=== PATIENT | male | born 1980 | race African-American/Black ===

== ENCOUNTER 2021-01-06 11:51 | Emergency (ER) | payer SELFPAY ==
[~2021-01-06] VITALS: Ht 177.8 cm; Wt 102.1 kg
[2021-01-06] MEDS ORDERED: ASPirin 81 mg TAB PO ONE (12:15)
[2021-01-06 12:58] LABS: Basophils # (auto) 0.1 10 ^3/uL (0-0.2); Basophils % (auto) 0.6 % (0.0-2.0); Eosinophils # (auto) 0.3 10 ^3/uL (0-0.8); Eosinophils % (auto) 2.6 % (0.0-7.0); Hematocrit 44.2 % (41.0-53.0); Hemoglobin 15.4 g/dL (13.5-17.5); Lymphocytes # (auto) 3.2 10 ^3/uL (0.4-5.4); Lymphocytes % (auto) 32.7 % (10.0-50.0); Mean Corpuscular Hemoglobin 32.1 pg (28.0-32.0); Mean Corpuscular Hgb Conc. 34.9 g/dL (32.0-36.0); Mean Corpuscular Volume 92.1 fL (80.0-100.0); Monocytes # (auto) 0.6 10 ^3/uL (0-1.3); Monocytes % (auto) 5.8 % (0.0-12.0); Neutrophils # (auto) 5.7 10 ^3/uL (1.6-8.6); Neutrophils % (auto) 58.3 % (37.0-80.0); Nucleated Red Blood Cells % 0.1 %; Platelet Count (auto) 255 10^3/uL (140-450); Red Cell Distribution Width 12.9 % (11.8-14.3); White Blood Cell 9.9 10^3/uL (4.4-10.8)
[2021-01-06 13:16] LABS: Anion Gap 4 (5-15); Blood Urea Nitrogen 13 mg/dL (7-18); Carbon Dioxide 26 mmol/L (21-32); Chloride 108 mmol/L (98-107); Glucose 71 mg/dL (74-106); Magnesium 2.7 mg/dL (1.6-2.6); Potassium 4.3 mmol/L (3.5-5.1); Sodium 138 mmol/L (136-145)
[2021-01-06 13:24] LABS: Alanine Aminotransferase 29 U/L (16-61); Alkaline Phosphatase 79 U/L (45-117); Aspartate Aminotransferase 16 U/L (15-37); BUN/Creatinine Ratio 9.1; Bilirubin, Total 0.3 mg/dL (0.2-1.0); GFR African American 71 mL/min; GFR Non-African American 59 mL/min; Total Protein 7.6 g/dL (6.4-8.2)
[2021-01-06 13:55] VITALS: BP 142/88
== END 2021-01-06 14:00 | disposition home or self-care (01) ==
LOC: ER 11:51
DX: R07.89 Other chest pain (principal); I16.0 Hypertensive urgency
CPT/HCPCS: 36415; 71046; 80053; 83735; 84484; 85025; 93005

== ENCOUNTER 2022-03-09 15:17 | Emergency (ER) | payer SELFPAY ==
[~2022-03-09] VITALS: Ht 177.8 cm; Wt 97.5 kg
[2022-03-09 16:00] VITALS: BP 154/90
[2022-03-09] MEDS ORDERED: BENZOCAINE (DENTAL)20% 1 SPR SPRAY MT ONE (16:15)
[2022-03-09] MEDS ORDERED: BENZ20SO3 MT (16:26)
[2022-03-09] MEDS ORDERED: CLIN300C8 PO (16:26)
== END 2022-03-09 16:42 | disposition home or self-care (01) ==
LOC: ER 15:17
DX: K04.7 Periapical abscess without sinus (principal); I10 Essential (primary) hypertension; F12.10 Cannabis abuse, uncomplicated; Z88.8 Allergy status to other drugs, medicaments and biological substances

== ENCOUNTER 2022-04-16 23:13 | Inpatient (IN) | payer MEDICAID ==
[~2022-04-16] VITALS: Ht 177.8 cm; Wt 93.0 kg
[~2022-04-16 23:13] MED LIST: BENZ20SO3 MT; CLIN300C8 PO
[2022-04-17] MEDS ORDERED: amLODIPine BESYLATE 5 MG TAB PO ONE
[2022-04-17 01:12] LABS: Basophils # (auto) 0.1 10 ^3/uL (0-0.2); Basophils % (auto) 0.7 % (0.0-2.0); Eosinophils # (auto) 0.5 10 ^3/uL (0-0.8); Eosinophils % (auto) 4.9 % (0.0-7.0); Hemoglobin 15.3 g/dL (13.5-17.5); Lymphocytes # (auto) 3.4 10 ^3/uL (0.4-5.4); Lymphocytes % (auto) 32.8 % (10.0-50.0); Mean Corpuscular Hemoglobin 31.3 pg (28.0-32.0); Mean Corpuscular Hgb Conc. 33.9 g/dL (32.0-36.0); Mean Corpuscular Volume 92.3 fL (80.0-100.0); Monocytes # (auto) 0.6 10 ^3/uL (0-1.3); Monocytes % (auto) 6.1 % (0.0-12.0); Neutrophils # (auto) 5.8 10 ^3/uL (1.6-8.6); Neutrophils % (auto) 55.5 % (37.0-80.0); Red Blood Cells 4.87 10^6/uL (4.5-5.90); Red Cell Distribution Width 12.9 % (11.8-14.3); White Blood Cell 10.5 10^3/uL (4.4-10.8)
[2022-04-17 01:26] LABS: Albumin 4.2 g/dL (3.4-5.0); BUN/Creatinine Ratio 12.1; Calcium 8.8 mg/dL (8.5-10.1); Potassium 4.5 mmol/L (3.5-5.1)
[2022-04-17 01:29] LABS: Bilirubin, Total 0.3 mg/dL (0.2-1.0); Total Protein 7.1 g/dL (6.4-8.2)
[2022-04-17] MEDS ORDERED: hydrALAZINE HCL 20 MG/ML VL IV ONE (02:30)
[2022-04-17] MEDS ORDERED: ALPRAZolam 0.5 MG TAB PO ONE ×2 (03:15→21:00)
[2022-04-17] MEDS ORDERED: LABETALOL HCL 5 MG/ML 4ML SYRINGE IV ONE ×2 (03:30→07:00)
[2022-04-17] MEDS ORDERED: hydrALAZINE HCL 20 MG/ML VL IV PRN (08:45)
[2022-04-17] MEDS ORDERED: cloNIDine HCL 0.1 MG TAB PO ONE (08:45)
[2022-04-17] MEDS ORDERED: MORPHINE SULFATE INJ 2 MG/ml SYRG IV PRN (09:00)
[2022-04-17] MEDS ORDERED: NITROGLYCERIN 0.4 MG SL TAB SL PRN (09:00)
[2022-04-17] MEDS: ENOXAPARIN SOD 40 MG/0.4 ML SYRINGE SC SCH (09:43)
[2022-04-17] MEDS ORDERED: LISINOPRIL 20 MG TAB PO SCH (10:00)
[2022-04-17] MEDS ORDERED: amLODIPine BESYLATE 5 MG TAB PO SCH (10:00)
[2022-04-17] MEDS: HCTZ 25 MG TAB PO SCH (10:43)
[2022-04-17 10:53] LABS: Cholesterol 162 mg/dL (< 200)
[2022-04-17 10:56] LABS: HDL Cholesterol 45 mg/dL (40-59); LDL Cholesterol 92 mg/dL (< 100); Triglycerides 160 mg/dL (< 150)
[2022-04-17 14:00] LABS: Amphetamine Screen, Urine NEGATIVE (NEGATIVE); Barbiturate Scree,Urine NEGATIVE (NEGATIVE); Benzodiazephine Screen, Urine NEGATIVE (NEGATIVE); Cannabinoid Screen, Urine POSITIVE (NEGATIVE); Cocaine Screen, Urine NEGATIVE (NEGATIVE); Opiate Scree,Urine NEGATIVE (NEGATIVE); Phencyclidine Screen, Urine NEGATIVE (NEGATIVE)
[2022-04-17 14:03] LABS: Urine Bacteria NONE SEEN /hpf (None Seen); Urine Blood Negative /uL (Negative); Urine Specific Gravity 1.011 (1.001-1.035); Urine WBC <1 /hpf (0 - 3)
[2022-04-17] MEDS ORDERED: METOPROLOL SUCCINATE XL 50 MG TAB PO ONE (14:30)
[2022-04-17] MEDS ORDERED: LOSARTAN POTASSIUM 50 MG TAB PO ONE (14:30)
[2022-04-17] MEDS ORDERED: cloNIDine HCL 0.1 MG TAB PO PRN (14:30)
[2022-04-17] MEDS ORDERED: ACETAMINOPHEN 500 MG TAB PO ONE ×2 (16:30→21:00)
[2022-04-17 22:37] VITALS: BP_SYST 147; BP_SYST 152; BP_DIAS 115; BP_DIAS 92
[2022-04-18 05:00] VITALS: BP 144/96
[2022-04-18 06:16] LABS: Basophils # (auto) 0.1 10 ^3/uL (0-0.2); Basophils % (auto) 0.7 % (0.0-2.0); Eosinophils # (auto) 0.5 10 ^3/uL (0-0.8); Eosinophils % (auto) 4.9 % (0.0-7.0); Hematocrit 48.2 % (41.0-53.0); Hemoglobin 16.2 g/dL (13.5-17.5); Lymphocytes % (auto) 31.8 % (10.0-50.0); Mean Corpuscular Hemoglobin 30.9 pg (28.0-32.0); Mean Corpuscular Hgb Conc. 33.6 g/dL (32.0-36.0); Mean Corpuscular Volume 91.9 fL (80.0-100.0); Monocytes # (auto) 0.6 10 ^3/uL (0-1.3); Monocytes % (auto) 5.9 % (0.0-12.0); Neutrophils # (auto) 5.3 10 ^3/uL (1.6-8.6); Neutrophils % (auto) 56.7 % (37.0-80.0); Nucleated Red Blood Cells % 0.2 %; Red Blood Cells 5.25 10^6/uL (4.5-5.90); Red Cell Distribution Width 12.7 % (11.8-14.3); White Blood Cell 9.3 10^3/uL (4.4-10.8)
[2022-04-18 06:20] LABS: BUN/Creatinine Ratio 8.9; Calcium 9.2 mg/dL (8.5-10.1); Potassium 4.2 mmol/L (3.5-5.1)
[2022-04-18 09:00] VITALS: BP 164/109
[2022-04-18] MEDS: HCTZ 25 MG TAB PO SCH (09:39)
[2022-04-18] MEDS: ENOXAPARIN SOD 40 MG/0.4 ML SYRINGE SC SCH (09:40)
[2022-04-18] MEDS ORDERED: LOSARTAN POTASSIUM 50 MG TAB PO SCH (10:00)
[2022-04-18] MEDS ORDERED: METOPROLOL SUCCINATE XL 50 MG TAB PO SCH (10:00)
== END 2022-04-18 10:36 | disposition left against medical advice (07) | DRG 199 ==
LOC: ER 23:13 → TELE 04-17 08:53 → TELE-WESTW 04-17 21:50
PROVIDERS: ADMIT Registered Nurse; ATTEND Internal Medicine Nephrology
DX: I16.0 Hypertensive urgency (principal); F12.90 Cannabis use, unspecified, uncomplicated; F41.9 Anxiety disorder, unspecified; I10 Essential (primary) hypertension; Z53.29 Procedure and treatment not carried out because of patient's decision for other reasons; Z20.822 Contact with and (suspected) exposure to COVID-19; Z91.09 Other allergy status, other than to drugs and biological substances
CPT/HCPCS: 36415; 80048; 80053; 80061; 80307; 81001; 82088; 83036; 84244; 84484; 85025; 93005; 93306; 96372; 96374; 96375; G0378; J3490

== ENCOUNTER 2022-04-29 21:57 | Emergency (ER) | payer SELFPAY ==
[~2022-04-29] VITALS: Ht 177.8 cm; Wt 91.6 kg
[2022-04-30] MEDS ORDERED: AMLO-496 PO (01:29)
[2022-04-30] MEDS ORDERED: ALPRAZolam 0.5 MG TAB PO ONE (01:30)
[2022-04-30 01:40] VITALS: BP 161/119
== END 2022-04-30 01:44 | disposition home or self-care (01) ==
LOC: ER 21:57
DX: I10 Essential (primary) hypertension (principal); F41.9 Anxiety disorder, unspecified

== ENCOUNTER 2022-09-07 19:47 | Emergency (ER) | payer MEDICAID ==
[~2022-09-07] VITALS: Ht 177.8 cm; Wt 92.2 kg
[~2022-09-07 19:47] MED LIST changes: +AMLO-496 PO
[2022-09-07 21:15] VITALS: BP 112/101
== END 2022-09-07 21:38 | disposition home or self-care (01) ==
LOC: ER 19:47
DX: S93.602A Unspecified sprain of left foot, initial encounter (principal); X50.1XXA Overexertion from prolonged static or awkward postures, initial encounter; Y93.89 Activity, other specified; Y92.89 Other specified places as the place of occurrence of the external cause; Y99.8 Other external cause status
CPT/HCPCS: 73630

== ENCOUNTER 2022-09-14 06:19 | Emergency (ER) | payer MEDICAID ==
[~2022-09-14] VITALS: Ht 177.8 cm; Wt 92.0 kg
[2022-09-14 07:54] VITALS: BP 145/83
[2022-09-14] MEDS ORDERED: CLIN300C8 PO (08:03)
== END 2022-09-14 08:09 | disposition home or self-care (01) ==
LOC: ER 06:19
DX: K04.7 Periapical abscess without sinus (principal); F12.10 Cannabis abuse, uncomplicated; I10 Essential (primary) hypertension; Z88.1 Allergy status to other antibiotic agents

== ENCOUNTER 2022-12-15 23:08 | Emergency (ER) | payer MEDICAID ==
[~2022-12-15] VITALS: Ht 177.8 cm; Wt 92.1 kg
[2022-12-16] MEDS ORDERED: HYDR-3682 PO (00:02)
[2022-12-16] MEDS ORDERED: AMLO-496 PO (00:02)
[2022-12-16 02:09] VITALS: BP 167/95
== END 2022-12-16 02:17 | disposition home or self-care (01) ==
LOC: ER 23:08
DX: F41.9 Anxiety disorder, unspecified (principal); I10 Essential (primary) hypertension; Z76.0 Encounter for issue of repeat prescription; F12.10 Cannabis abuse, uncomplicated

== ENCOUNTER 2022-12-31 05:52 | Inpatient (IN) | payer MEDICAID ==
[~2022-12-31] VITALS: Ht 177.8 cm; Wt 86.3 kg
[~2022-12-31 05:52] MED LIST changes: +HYDR-3682 PO
[2022-12-31 06:39] LABS: Basophils # (auto) 0 10 ^3/uL (0-0.2); Basophils % (auto) 0.6 % (0.0-2.0); Eosinophils # (auto) 0.3 10 ^3/uL (0-0.8); Eosinophils % (auto) 4.2 % (0.0-7.0); Hematocrit 43.7 % (41.0-53.0); Hemoglobin 15.3 g/dL (13.5-17.5); Lymphocytes % (auto) 26.7 % (10.0-50.0); Mean Corpuscular Hemoglobin 31.9 pg (28.0-32.0); Monocytes # (auto) 0.4 10 ^3/uL (0-1.3); Neutrophils # (auto) 4.6 10 ^3/uL (1.6-8.6); Neutrophils % (auto) 62.5 % (37.0-80.0); Nucleated Red Blood Cells % 0.2 %; White Blood Cell 7.3 10^3/uL (4.4-10.8)
[2022-12-31 07:14] LABS: INR 0.94 (0.9-1.15); Partial Thromboplastin Time 29.6 sec (24.6-33.4)
[2022-12-31 07:26] LABS: Albumin 4.1 g/dL (3.4-5.0); Calcium 8.9 mg/dL (8.5-10.1); Potassium 4.1 mmol/L (3.5-5.1)
[2022-12-31 07:30] LABS: BUN/Creatinine Ratio 10.2 (10.0-20.0); Bilirubin, Total 0.3 mg/dL (0.2-1.0); Total Protein 7.3 g/dL (6.4-8.2)
[2022-12-31] MEDS ORDERED: LORazepam 0.5 MG TAB PO ONE (07:45)
[2022-12-31 08:07] LABS: Urine Bacteria NONE SEEN /hpf (None Seen); Urine Blood Negative /uL (Negative); Urine Mucus FEW (None Seen); Urine Specific Gravity 1.012 (1.001-1.035); Urine WBC <1 /hpf (0 - 3)
[2022-12-31 08:28] LABS: Alcohol, Urine < 3.0 mg/dL (0-10); Amphetamine Screen, Urine NEGATIVE (NEGATIVE); Barbiturate Scree,Urine NEGATIVE (NEGATIVE); Benzodiazephine Screen, Urine NEGATIVE (NEGATIVE); Cannabinoid Screen, Urine POSITIVE (NEGATIVE); Cocaine Screen, Urine NEGATIVE (NEGATIVE); Phencyclidine Screen, Urine NEGATIVE (NEGATIVE)
[2022-12-31 08:35] LABS: Opiate Scree,Urine NEGATIVE (NEGATIVE)
[2022-12-31] MEDS ORDERED: PANTOPRAZOLE 40 MG/10 ML VIAL INJ IV ONE (11:45)
[2022-12-31] MEDS ORDERED: ONDANSETRON HCL 4 MG/2 ML VIAL IV PRN (11:45)
[2022-12-31] MEDS ORDERED: LORazepam 0.5 MG TAB PO PRN (11:45)
[2022-12-31] MEDS ORDERED: HYDROcodone-ACET 5/325MG TAB PO PRN (11:45)
[2022-12-31] MEDS ORDERED: MORPHINE SULFATE INJ 2 MG/ml SYRG IV PRN (11:45)
[2022-12-31] MEDS ORDERED: LACTATED RINGER'S 1,000 ML IV SCH (11:45)
[2022-12-31] MEDS ORDERED: ACETAMINOPHEN 325 MG TAB PO PRN (11:45)
[2022-12-31 15:30] VITALS: BP 140/95
[2022-12-31 17:00] VITALS: BP 142/85
[2023-01-01] MEDS ORDERED: amLODIPine BESYLATE 5 MG TAB PO SCH (10:00)
[2023-01-01] MEDS ORDERED: PANTOPRAZOLE 40 MG/10 ML VIAL INJ IV SCH (10:00)
== END 2022-12-31 17:38 | disposition left against medical advice (07) | DRG 282 ==
LOC: ER 05:52 → OVERFLOW 11:41 → WEST WING 15:42
PROVIDERS: ADMIT Registered Nurse; ATTEND Registered Nurse
DX: K85.90 Acute pancreatitis without necrosis or infection, unspecified (principal); E11.9 Type 2 diabetes mellitus without complications; F41.9 Anxiety disorder, unspecified; I10 Essential (primary) hypertension; J45.909 Unspecified asthma, uncomplicated; F12.90 Cannabis use, unspecified, uncomplicated; Z53.29 Procedure and treatment not carried out because of patient's decision for other reasons; Z83.3 Family history of diabetes mellitus
CPT/HCPCS: 36415; 71046; 74176; 76705; 80053; 80307; 81001; 83690; 83880; 84484; 85025; 85379; 85610; 85730; 93005; 96361; 96374; C9113; G0378

== ENCOUNTER 2023-07-30 03:10 | Emergency (ER) | payer MEDICAID ==
[~2023-07-30] VITALS: Ht 177.8 cm; Wt 90.0 kg
[~2023-07-30 03:10] MED LIST changes: -AMLO-496 PO; +AMLO1TAB23 PO; +CLIN300C70 PO; -CLIN300C8 PO
[2023-07-30 03:28] VITALS: BP 158/97; PULSE 65; RESP 17; O2SAT 97
== END 2023-07-30 05:16 | disposition left against medical advice (07) ==
LOC: ER 03:10
DX: I10 Essential (primary) hypertension (principal); M54.50 Low back pain, unspecified; Z53.21 Procedure and treatment not carried out due to patient leaving prior to being seen by health care provider